=== PATIENT | female | born 1965 | race Caucasian/White ===

== ENCOUNTER 2018-04-19 23:00 | Emergency (ER) | payer OTHER ==
[~2018-04-19] VITALS: Ht 170.2 cm; Wt 80.9 kg
[2018-04-19 23:10] VITALS: BP 134/65; PULSE 116; RESP 16; TEMP 98.8; O2SAT 95
[2018-04-19] MEDS ORDERED: LEVO.2 PO (23:14)
[2018-04-19] MEDS ORDERED: METF1000 PO (23:14)
[2018-04-19] MEDS ORDERED: ALEV120T PO (23:33)
[2018-04-19] MEDS ORDERED: PROM6.256 PO (23:33)
--- NOTE | 2018-04-19 23:33 | PD ---
HPI Chief Complaint: Cold / Flu Symptoms Time Seen by Provider: 23:18 Travel History International Travel<30 days: No Contact w/Intl Traveler<30days: No Traveled to known affect area: No History of Present Illness HPI This is a 52-year-old female who presents to the emergency department with 1 day of runny nose, sore throat, nonproductive cough and chills and body aches, constant, moderate severity making it difficult for her to work. She has no smoking history. She said someone took her temperature earlier today and it was 100.2. She has been using saline nose spray but is not helping. PFSH Past Medical History Diabetes: Yes (ON METFORMIN) ?: Not LMP: MENEPAUSAL Social History Tobacco Use: No Allergies-Medications (Allergen,Severity, Reaction): Coded Allergies: celecoxib (Verified Allergy, Severe, Nausea/Vomiting, 04/19/18) Reported Meds & Prescriptions Reported Meds & Active Scripts Active Reported Synthroid (Levothyroxine Sodium) 200 Mcg Tab 200 Mcg PO DAILY Metformin (Metformin HCl) 1,000 Mg Tab 1,000 Mg PO BIDPC Review of Systems Except as stated in HPI: all other systems reviewed are Neg Physical Exam Narrative GENERAL:Well appearing, no acute distress SKIN: Focused skin assessment warm and dry. HEAD: Atraumatic. Normocephalic. EYES: Pupils equal and round. No injection or drainage. ENT: Moist mucous membranes. Erythema of the nares. No posterior pharyngeal erythema or exudates. NECK: Trachea midline. CARDIOVASCULAR: Regular rate and rhythm. No murmur appreciated. RESPIRATORY: Clear to auscultation. Breath sounds equal bilaterally. GASTROINTESTINAL: Abdomen soft, non-tender, nondistended. MUSCULOSKELETAL: No obvious deformities. NEUROLOGICAL: Awake and alert. No obvious cranial nerve deficits. Moving all extremities. PSYCHIATRIC: Appropriate mood and affect; insight and judgment normal. Data Data Last Documented VS Vital Signs Date Time Temp Pulse Resp B/P (MAP) Pulse Ox O2 Delivery O2 Flow Rate FiO2 04/19/18 23:10 98.8 116 16 134/65 (88) 95 MDM Medical Decision Making Medical Screen Exam Complete: Yes Emergency Medical Condition: Yes Differential Diagnosis Upper respiratory infection, viral syndrome, bronchitis, strep pharyngitis Narrative Course This is a 52-year-old female who presents to the emergency department with runny nose, cough and sore throat. She appears nontoxic on exam. She has a benign appearing posterior pharynx. I suspect she has a viral syndrome. She will be prescribed symptomatic management and I think is safe for outpatient treatment. Diagnosis Primary Impression: Viral syndrome Patient Instructions: General Instructions Departure Forms: Tests/Procedures, Work Release Enter return to work date: Apr 25, 2018 Additional Instructions: If you develop severe chest pain, shortness of breath, sweating, lightheadedness , dizziness or difficulty breathing return to the emergency department immediately. Followup with your primary care physician in 2-3 days if your symptoms are not resolved. Med/Other Pt SpecificInfo: Prescription(s) given Scripts Promethazine-Codeine Liq (Promethazine-Codeine Liq) 6.25-10 Mg/5 Ml Syrp 5-10 ML PO Q6H Y for COUGH AND/OR COLD SYMPTOMS, #60 ML 0 Refills Prov: Crystal Hopper MD 04/19/18 Pseudoephedrine-Naproxen (Aleve-D Sinus & Headache) 120-220 Mg Tab 1 TAB PO BID Y for NASAL CONGESTION, #1 BOX Prov: Crystal Hopper MD 04/19/18 Disposition: 01 DISCHARGE HOME Condition: Stable Crystal Hopper MD April 19, 2018 23:33
[2018-04-20] MEDS ORDERED: NAPROXEN 500 MG TAB PO ONE
[2018-04-20] MEDS ORDERED: guaiFENesin SOLUTION 200 MG/10 ML CUP PO ONE
== END 2018-04-20 00:18 | disposition home or self-care (01) ==
LOC: PHED 23:00
DX: B34.9 Viral infection, unspecified (principal); E11.9 Type 2 diabetes mellitus without complications; Z79.899 Other long term (current) drug therapy; Z88.8 Allergy status to other drugs, medicaments and biological substances
CPT/HCPCS: 99283